=== PATIENT | male | born 1985 | race Caucasian/White ===

== ENCOUNTER 2016-12-29 21:13 | Emergency (ER) | payer MEDICAID ==
[2016-12-29 23:12] VITALS: BP 124/76
== END 2016-12-29 23:12 | disposition home or self-care (01) ==
LOC: ED 21:13
DX: S05.02XA Injury of conjunctiva and corneal abrasion without foreign body, left eye, initial encounter (principal); X58.XXXA Exposure to other specified factors, initial encounter; Y93.89 Activity, other specified; Y99.8 Other external cause status; Y92.89 Other specified places as the place of occurrence of the external cause
CPT/HCPCS: J1885